=== PATIENT | male | born 1980 | race Two or more races ===

== ENCOUNTER → 2024-09-04 | Emergency (ER) | payer OTHER ==
[~2024-09-04] VITALS: Ht 180.3 cm; Wt 145.1 kg
[~2024-09-04] MED LIST: ZESTORETIC 20-1 EAC1 PO
== END | disposition left against medical advice (07) ==
LOC: ER 02:54
DX: Z53.21 Procedure and treatment not carried out due to patient leaving prior to being seen by health care provider (principal)